=== PATIENT | male | born 1965 | race Caucasian/White ===

== ENCOUNTER → 2016-11-18 | Outpatient (CLI) | payer OTHER ==
[2016-11-18 13:45] LABS: ALANINE AMINOTRANSFERASE 29 U/L (0-55); ALBUMIN 4.3 GM/DL (3.2-4.5); ANION GAP 7 MMOL/L (5-14); ASPARTATE AMINO TRANSFERASE 23 U/L (5-34); BILIRUBIN,TOTAL 0.9 MG/DL (0.1-1.0); BLOOD UREA NITROGEN 12 MG/DL (7-18); BUN/CREATININE RATIO 11; CALCIUM 9.1 MG/DL (8.5-10.1); CARBON DIOXIDE 28 MMOL/L (21-32); CHLORIDE 103 MMOL/L (98-107); CHOLESTEROL 166 MG/DL (< 200); CREATININE SERUM 1.08 MG/DL (0.60-1.30); DIRECT LDL 100 MG/DL (1-129); GFR ESTIMATED > 60; GLUCOSE 86 MG/DL (70-105); POTASSIUM 3.6 MMOL/L (3.6-5.0); SODIUM 138 MMOL/L (135-145); TOTAL PROTEIN 7.1 GM/DL (6.4-8.2); TRIGLYCERIDES 135 MG/DL (<150); VLDL CHOLESTEROL 27 MG/DL (5-40)
--- NOTE | 2016-11-18 23:28 | STRESS TEST ---
DATE OF SERVICE: 11/18/2016 EXERCISE STRESS ECHOCARDIOGRAM: REFERRING PHYSICIAN: Dr. Ballard. Baseline heart rate is 82. Baseline blood pressure 110/60, baseline EKG is sinus rhythm with no ischemic changes. In summary, the patient started exercising with the baseline heart rate, blood pressure and EKG mentioned above. He was able to exercise for a total of 10 minutes 40 seconds on standard Joaquim protocol, achieving maximum heart rate of 146 which is 85% of maximum expected heart rate. With peak exercise level, EKG was showing minimal undiagnostic changes. Blood pressure was 152/89. During recovery, heart rate and blood pressure returned to baseline. EKG returned to baseline. Echocardiographic images were acquired and reviewed in the parasternal long axis, parasternal short axis, apical four chamber and apical two chamber views. Optison injection was used for better enhancement of the left ventricle. Left ventricular contractility appeared to be in the low normal limit at rest, improved with peak stress level with no ischemic changes. CONCLUSION: 1. Excellent exercise tolerance, a total of 10 minutes and 40 seconds on standard Joaquim protocol, total of 12.1 METS, achieving 85% of maximum expected heart rate. 2. Appropriate heart rate and blood pressure response to exercise returned to baseline during recovery. 3. Minimal nondiagnostic EKG changes with exercise returned to baseline during recovery. 4. Normal echocardiographic images at rest and with peak stress level with normal contractility with no ischemic changes. Job ID: [id number] DocumentID: [id number] Dictated Date: 11/18/2016 15:22:22 Specifications Writer Date: 11/18/2016 23:27:32 Dictated By: CESIA GOULD MD
== END ==
LOC: CARD 12:58
PROVIDERS: ATTEND Internal Medicine Cardiovascular Disease
DX: R06.02 Shortness of breath; E78.5 Hyperlipidemia, unspecified; R60.0 Localized edema; I10 Essential (primary) hypertension; R55 Syncope and collapse
CPT/HCPCS: 36415; 80053; 80061; 93306

== ENCOUNTER 2016-11-23 21:00 | Outpatient (CLI) | payer OTHER | END 2016-11-24 05:43 | disposition home or self-care (01) | LOC: SLEEP 21:00 | PROVIDERS: ATTEND Internal Medicine Cardiovascular Disease | DX: G47.33 Obstructive sleep apnea (adult) (pediatric) (principal) | CPT/HCPCS: 95811 ==

== ENCOUNTER 2017-06-14 07:55 | Day surgery (SDC) | payer BC, OTHER ==
[~2017-06-14] VITALS: Ht 185.4 cm; Wt 106.6 kg
[~2017-06-14 07:55] MED LIST: ALLO300T2 PO; LOSA25TA21 PO; PRAV20TA3 PO
[2017-06-14] MEDS ORDERED: NS IV 500 ML 500 ML IV PRN (08:05)
[2017-06-14 08:10] VITALS: BP 122/90
[2017-06-14] MEDS ORDERED: NS IV 500 ML 500 ML ONE (08:16)
[2017-06-14] MEDS ORDERED: MIDAZOLAM 2 MG/2 ML (VERSED) VIAL ONE ×3 (08:40)
[2017-06-14] MEDS ORDERED: fentaNYL INJECTION 100 MCG/2 ML AMP ONE ×2 (08:41→08:57)
[2017-06-14] MEDS: fentaNYL INJECTION 100 MCG/2 ML AMP IVP PRN ×2 (08:53→09:07)
[2017-06-14] MEDS: MIDAZOLAM 2 MG/2 ML (VERSED) VIAL IVP PRN ×3 (08:55→09:05)
--- NOTE | 2017-06-14 09:25 | Conscious Sedation/ASA ---
Conscious Sedation Pre-Proced Time Reviewed: 08:54 ASA Class: 2 Airway Mallampati Classification: ([place] appropriate class) I. II. III, IV Lungs Heart ASA score ASA 1: a normal healthy patient ASA 2: a patient with a mild systemic disease (mid diabetes, controlled hypertension, obesity ASA 3: a patient with a severe systemic disease that limits activity (angina , COPD, prior Myocardial infarction) ASA 4: a patient with an incapacitating disease that is a constant threat to life (CHF, renal failure) ASA 5: a moribund patient not expected to survive 24 hrs. (ruptured aneurysm) ASA 6: a declared brain patient whose organs are being harvested. For emergent operations, add the letter E after the classification Grade 1 Sedation Plan: Discussed options with patient/fam Note The patient is an appropriate candidate to undergo the planned procedure, sedation, and anesthesia. The patient immediately re-assessed prior to indication. LYDIA JAVIER MD Jun 14, 2017 9:25 am
--- NOTE | 2017-06-14 09:25 | History & Physicial ---
History of Present Illness History of Present Illness Reason for visit/HPI to undergo screening colonoscopy. Denies any relevant family history Date of Admission 06/14/17 Date Seen by Provider: Jun 14, 2017 Time Seen by Provider: 08:45 I consulted on this patient on 06/14/17 09:21 Attending Physician Lydia Javier MD Admitting Physician Randall Valero MD Consult Allergies and Home Medications Allergies Coded Allergies: No Known Drug Allergies (Unverified , 06/07/17) Home Medications Allopurinol 300 Mg Tablet, 300 MG PO DAILY, (Reported) Losartan Potassium 25 Mg Tablet, 25 MG PO DAILY, (Reported) Pravastatin Sodium 20 Mg Tablet, 20 MG PO DAILY, (Reported) Patient Home Medication List Home Medication List Reviewed: Yes Past Itkuqva-Cyfppw-Amjwka Hx Patient Social History Marrital Status: single Employed/Student: employed, retired Alcohol Use: Occasionally Uses Recreational Drug Use: No Smoking Status: Never a Smoker Recent Foreign Travel: No Contact w/other who traveled: No Recent Hopitalizations: No Recent Infectious Disease Expo: No Seasonal Allergies Seasonal Allergies: No Surgeries Vasectomy Respiratory Currently Using CPAP: No Cardiovascular Yes High Cholesterol, Hypertension, Syncope Reproductive System Hx Reproductive Disorders: No Sexually Transmitted Disease: No HIV/AIDS: No HEENT Loss of Vision: Bilateral Hearing Impairment: Denies Blood Transfusions Adverse Reaction to a Blood Tr: No (N/A) Constitutional: no symptoms reported EENTM: no symptoms reported Respiratory: no symptoms reported Cardiovascular: no symptoms reported Gastrointestinal: no symptoms reported, see HPI Genitourinary: no symptoms reported Musculoskeletal: no symptoms reported Skin: no symptoms reported Psychiatric/Neurological: No Symptoms Reported Physical Exam Vital Signs Vital Signs - First Documented 06/14/17 08:10 Temp 97.3 Pulse 75 Resp 20 B/P (MAP) 122/90 (101) Pulse Ox 96 O2 Delivery Room Air Capillary Refill : General Appearance: No Apparent Distress Neck: Normal Inspection Respiratory: Lungs Clear Cardiovascular: Regular Rate, Rhythm Gastrointestinal: Non Tender, Soft Rectal: Deferred Back: Normal Inspection Extremity: Normal Inspection Neurologic/Psychiatric: Alert, Oriented x3 Skin: Warm/Dry Assessment/Plan Assessment and Plan gentleman here to undergo screening colonoscopy. Details of the procedure, iatrogenic perforation, post polypectomy bleeding etc. discussed thoroughly. Willing to proceed Admission Diagnosis Admission Status: Other (Outpt Proc) LYDIA JAVIER MD Jun 14, 2017 9:25 am
--- NOTE | 2017-06-14 09:28 | Endo Procedure Record ---
Endo Procedure Report Date of Procedure Last Colonoscopy: No Jun 14, 2017 Surgeon (s) LYDIA JAVIER MD Post Procedure/Op Diagnosis 2 mm polyp at the distal sigmoid colon Sigmoid diverticulosis Procedure Performed Colonoscopy to cecum Hot biopsy polypectomy 1 Description of Procedure Anesthesia Type: Conscious Sedation Specimen(s) collected/removed sigmoid polyp Description of the Procedure indication for the procedure: This gentleman came in for screening colonoscopy. He denied any relevant family history. Informed consent was obtained after reviewing the details and procedure and iatrogenic complications of perforation, post-polypectomy bleeding etc. Description of the procedure: He was placed in left lateral decubitus position and his vital signs were monitored. Conscious sedation was achieved using Versed and fentanyl. Digital rectal examination was unremarkable. The colonoscope was then introduced in the rectum and advanced all the way up to the cecum. Quality of bowel preparation was reasonable. The scope was then withdrawn slowly and the mucosa examined in a systematic fashion. Findings: 1. 2 mm polyp at the distal sigmoid colon, that was excised with hot biopsy forceps 2. Sigmoid diverticulosis without any inflammation He tolerated the procedure well and was taken back to the nursing area in a stable condition. Impression: Screening colonoscopy. Small polyp excised from the sigmoid colon, possibly a hyperplastic type. Recommend repeating exam in 5 years. Copies To: EMANUEL SEBASTIAN MD, XAVIER M MD Jun 14, 2017 9:28 am
--- NOTE | 2017-06-14 09:29 | Discharge Inst-Simple/Standard ---
Discharge Inst-Standard Discharge Medications New, Converted or Re-Newed RX: Other Patient Instructions/Follow Up Plan of Care/Instructions/FU: Repeat colonoscopy in 5 years Activity as Tolerated: Yes Discharge Diet: No Restrictions LYDIA JAVIER MD Jun 14, 2017 9:29 am
[2017-06-14 09:35] VITALS: BP 120/78
[2017-06-14 10:00] VITALS: BP 127/74
[2017-06-14 10:05] VITALS: BP 127/74
== END 2017-06-14 10:05 | disposition home or self-care (01) ==
LOC: ENDO 07:55
PROVIDERS: ATTEND Surgery
DX: Z12.11 Encounter for screening for malignant neoplasm of colon (principal); D12.5 Benign neoplasm of sigmoid colon; K57.30 Diverticulosis of large intestine without perforation or abscess without bleeding; E78.00 Pure hypercholesterolemia, unspecified; I10 Essential (primary) hypertension; Z79.899 Other long term (current) drug therapy
CPT/HCPCS: 88305

== ENCOUNTER 2020-03-11 18:53 | Emergency (ER) | payer BC ==
[~2020-03-11 18:53] MED LIST changes: -LOSA25TA21 PO; +LOSA25TA41 PO
[2020-03-11] MEDS ORDERED: PROMETHAZINE/ CODEINE SYRUP 5 ML UDC ONE (19:14)
[2020-03-11] MEDS ORDERED: IBUPROFEN 800 MG (MOTRIN) TAB PO ONE ×2 (19:15→19:30)
--- NOTE | 2020-03-11 19:21 | ED Respiratory ---
General Chief Complaint: Respiratory Problems Stated Complaint: COVID + SOA Source: patient Exam Limitations: no limitations History of Present Illness Date Seen by Provider: Mar 11, 2020 Time Seen by Provider: 19:19 Initial Comments To ER with shortness of breath Covid positive. He became symptomatic 7 days ago on Saturday 03/04. He tested positive for Covid Sunday 03/05. He was given a prescription for dexamethasone 6 mg daily plus azithromycin and albuterol. He presented to the clinic tonight for recheck and reported that he was feeling worse. His oxygen saturation was 91% on room air. Timing/Duration: constant Associated Symptoms: cough, fever/chills, shortness of breath Allergies and Home Medications Allergies Coded Allergies: No Known Drug Allergies (Unverified , 06/07/17) Home Medications Allopurinol 300 Mg Tablet, 300 MG PO DAILY, (Reported) Losartan Potassium 25 Mg Tablet, 25 MG PO DAILY, (Reported) Pravastatin Sodium 20 Mg Tablet, 20 MG PO DAILY, (Reported) Patient Home Medication List Home Medication List Reviewed: Yes Review of Systems Review of Systems Constitutional: see HPI, chills, fever, malaise EENTM: see HPI Respiratory: see HPI, cough Cardiovascular: no symptoms reported Genitourinary: no symptoms reported Musculoskeletal: no symptoms reported Skin: no symptoms reported Psychiatric/Neurological: No Symptoms Reported Hematologic/Lymphatic: No Symptoms Reported Immunological/Allergic: no symptoms reported Past Cdxnxmz-Rrpzrj-Sbmvns Hx Patient Social History Recent Hopitalizations: No Seasonal Allergies Seasonal Allergies: No Past Medical History Vasectomy Sleep Apnea Currently Using CPAP: No Cardiac: Yes High Cholesterol, Hypertension, Syncope Reproductive Disorders: No Sexually Transmitted Disease: No HIV/AIDS: No Loss of Vision: Bilateral Hearing Impairment: Denies Adverse Reaction/Blood Tranf: No (N/A) Physical Exam Vital Signs - First Documented 03/11/20 19:10 Temp 40.0 Pulse 106 Resp 22 B/P (MAP) 116/82 (93) Pulse Ox 96 O2 Delivery Room Air Capillary Refill : Height: 6'1.00" Weight: 235lbs. 0.0oz. 106.549026ci; 31.0 BMI Method: General Appearance: WD/WN, no apparent distress, other (Persistent cough that interrupts his speech. Heart rate 100. Oxygen 96% on room air after walking to room 10 from the parking lot. Respiratory rate 35. Blood pressure 116/82.) Eyes: Bilateral Eye Normal Inspection, Bilateral Eye PERRL, Bilateral Eye EOMI HEENT: PERRL/EOMI, normal ENT inspection Neck: non-tender, full range of motion Respiratory: no respiratory distress, no accessory muscle use Cardiovascular: regular rate, rhythm, no murmur Gastrointestinal: normal bowel sounds, non tender, soft Neurologic/Psychiatric: alert, normal mood/affect, oriented x 3 Skin: normal color, warm/dry Focused Exam Lactate Level 03/11/20 19:30: Lactic Acid Level 0.95 Lactic Acid Level Laboratory Tests Test 03/11/20 19:30 Lactic Acid Level 0.95 MMOL/L (0.50-2.00) Progress/Results/Core Measures Suspected Sepsis SIRS Temperature: Pulse: Respiratory Rate: Laboratory Tests 03/11/20 19:30: White Blood Count 5.9 Blood Pressure / Mean: 03/11/20 19:30: Lactic Acid Level 0.95 Laboratory Tests 03/11/20 19:30: Creatinine 1.33H, Platelet Count 198, Total Bilirubin 0.4 Results/Orders Lab Results Laboratory Tests Test 03/11/20 19:30 Range/Units White Blood Count 5.9 4.3-11.0 10^3/uL Red Blood Count 4.59 4.30-5.52 10^6/uL Hemoglobin 15.0 13.3-17.7 g/dL Hematocrit 44 40-54 % Mean Corpuscular Volume 97 80-99 fL Mean Corpuscular Hemoglobin 33 25-34 pg Mean Corpuscular Hemoglobin Concent 34 32-36 g/dL Red Cell Distribution Width 12.2 10.0-14.5 % Platelet Count 198 130-400 10^3/uL Mean Platelet Volume 10.2 9.0-12.2 fL Immature Granulocyte % (Auto) 1 % Neutrophils (%) (Auto) 54 42-75 % Lymphocytes (%) (Auto) 37 12-44 % Monocytes (%) (Auto) 7 0-12 % Eosinophils (%) (Auto) 0 0-10 % Basophils (%) (Auto) 0 0-10 % Neutrophils # (Auto) 3.2 1.8-7.8 10^3/uL Lymphocytes # (Auto) 2.2 1.0-4.0 10^3/uL Monocytes # (Auto) 0.4 0.0-1.0 10^3/uL Eosinophils # (Auto) 0.0 0.0-0.3 10^3/uL Basophils # (Auto) 0.0 0.0-0.1 10^3/uL Immature Granulocyte # (Auto) 0.1 0.0-0.1 10^3/uL D-Dimer 0.31 0.00-0.49 UG/ML Sodium Level 141 135-145 MMOL/L Potassium Level 4.2 3.6-5.0 MMOL/L Chloride Level 105 98-107 MMOL/L Carbon Dioxide Level 21 21-32 MMOL/L Anion Gap 15 H 5-14 MMOL/L Blood Urea Nitrogen 20 H 7-18 MG/DL Creatinine 1.33 H 0.60-1.30 MG/DL Estimat Glomerular Filtration Rate 56 BUN/Creatinine Ratio 15 Glucose Level 93 70-105 MG/DL Lactic Acid Level 0.95 0.50-2.00 MMOL/L Calcium Level 8.6 8.5-10.1 MG/DL Corrected Calcium 8.7 8.5-10.1 MG/DL Total Bilirubin 0.4 0.1-1.0 MG/DL Aspartate Amino Transf (AST/SGOT) 40 H 5-34 U/L Alanine Aminotransferase (ALT/SGPT) 36 0-55 U/L Alkaline Phosphatase 69 40-136 U/L C-Reactive Protein High Sensitivity 1.01 H 0.00-0.50 MG/DL B-Type Natriuretic Peptide < 10.0 <100.0 PG/ML Total Protein 7.0 6.4-8.2 GM/DL Albumin 3.9 3.2-4.5 GM/DL My Orders Orders - JOSE BRADFORD APRN Fibrin Degradation Products (03/11/20 19:09) Hs C Reactive Protein (03/11/20 19:09) Procalcitonin (Pct) (03/11/20 19:09) BNP (03/11/20 19:09) Chest 1 View, Ap/Pa Only (03/11/20 19:09) Cbc With Automated Diff (03/11/20 19:09) Comprehensive Metabolic Panel (03/11/20 19:09) Ed Iv/Invasive Line Start (03/11/20 19:09) Lactic Acid Analyzer (03/11/20 19:09) Blood Culture (03/11/20 19:09) Ibuprofen Tablet (Motrin Tablet) (03/11/20 19:30) Promethazine/ Codeine Syrup (Phenergan W (03/11/20 19:30) Promethazine/ Codeine Syrup (Phenergan W (03/11/20 19:14) Ibuprofen Tablet (Motrin Tablet) (03/11/20 19:15) Ns Iv 500 Ml (Sodium Chloride 0.9%) (03/11/20 20:15) Ns Iv 500 Ml (Sodium Chloride 0.9%) (03/11/20 20:10) Medications Given in ED Current Medications Medications Dose Ordered Sig/Carlito Route Start Time Stop Time Status Last Admin Dose Admin Ibuprofen 800 mg ONCE ONCE PO 03/11/20 19:30 03/11/20 19:31 DC 03/11/20 19:20 800 MG Promethazine HCl/ Codeine 7.5 ml ONCE ONCE PO 03/11/20 19:30 03/11/20 19:31 DC 03/11/20 19:21 7.5 ML Vital Signs/I&O 03/11/20 19:10 Temp 40.0 Pulse 106 Resp 22 B/P (MAP) 116/82 (93) Pulse Ox 96 O2 Delivery Room Air Capillary Refill : Departure Impression Primary Impression: COVID-19 Disposition: 01 HOME, SELF-CARE Condition: Stable Departure-Patient Inst. Decision time for Depature: 20:32 Patient Instructions: Coronavirus Disease 2019 (COVID-19) ED Add. Discharge Instructions: Use Tylenol and ibuprofen for fever control. Use the cough medication as directed. Return to ER for any concerns. All discharge instructions reviewed with patient and/or family. Voiced understanding. Scripts Docusate Sodium (Colace) 100 Mg Capsule 100 MG PO BID, #14 CAP Prov: JOSE BRADFORD TAX AGENT 03/11/20 Promethazine HCl/Codeine (Prometh-Codein 6.25-10 mg/5 ml) 5 Ml Syrup 5 ML PO Q4H PRN for COUGH, #60 ML Prov: JOSE BRADFORD TAX AGENT 03/11/20 JOSE BRADFORD TAX AGENT Mar 11, 2020 19:21
[2020-03-11] MEDS ORDERED: PROMETHAZINE/ CODEINE SYRUP 5 ML UDC PO ONE (19:30)
[2020-03-11 19:46] LABS: BASOPHILS % (AUTO) 0 % (0-10); EOSINOPHILS % (AUTO) 0 % (0-10); HEMATOCRIT 44 % (40-54); LYMPHOCYTES # (AUTO) 2.2 10^3/uL (1.0-4.0); LYMPHOCYTES % (AUTO) 37 % (12-44); MEAN CORPUSCULAR HEMOGLOBIN 33 pg (25-34); MEAN CORPUSCULAR HGB CONC 34 g/dL (32-36); MEAN CORPUSCULAR VOLUME 97 fL (80-99); MEAN PLATELET VOLUME 10.2 fL (9.0-12.2); MONOCYTES # (AUTO) 0.4 10^3/uL (0.0-1.0); MONOCYTES % (AUTO) 7 % (0-12); NEUTROPHILS # (AUTO) 3.2 10^3/uL (1.8-7.8); NEUTROPHILS % (AUTO) 54 % (42-75); PLATELET COUNT 198 10^3/uL (130-400); WHITE BLOOD COUNT 5.9 10^3/uL (4.3-11.0)
[2020-03-11 20:09] LABS: ALBUMIN 3.9 GM/DL (3.2-4.5); BILIRUBIN,TOTAL 0.4 MG/DL (0.1-1.0); CALCIUM 8.6 MG/DL (8.5-10.1); CREATININE SERUM 1.33 MG/DL (0.60-1.30); POTASSIUM 4.2 MMOL/L (3.6-5.0)
[2020-03-11] MEDS ORDERED: NS IV 500 ML 500 ML ONE (20:10)
[2020-03-11] MEDS ORDERED: NS IV 500 ML 500 ML IV SCH (20:15)
--- NOTE | 2020-03-11 20:22 | Diagnostic Imaging Report ---
INDICATION: Covid infection and dyspnea. AP view of the chest is obtained. There is suboptimal inspiration. Heart size and pulmonary vascularity are at the upper limits of normal with mild blunting of the left costophrenic sulcus. Mild patchy densities are seen in the periphery of both lungs most pronounced in the right upper lobe region. There is no evidence of pneumothorax. IMPRESSION: 1. Patchy peripheral densities likely related to edema or viral pneumonitis. There may be a small amount of left pleural fluid or thickening. Dictated by: Dictated on workstation # [id number]
[2020-03-11] MEDS ORDERED: DOCU-143 PO (20:35)
[2020-03-11] MEDS ORDERED: PROM5SYR PO (20:35)
[2020-03-11] MEDS ORDERED: RX-ACETAMINOPHEN/CODEINE TAB PPK #4 PO SCH (20:45)
[2020-03-11 20:58] VITALS: BP 116/66
== END 2020-03-11 20:58 | disposition home or self-care (01) ==
LOC: EDUNIT# 18:53 → ER 18:55
DX: U07.1 COVID-19 (principal); I10 Essential (primary) hypertension; E78.00 Pure hypercholesterolemia, unspecified
CPT/HCPCS: 36415; 71045; 80053; 83605; 83880; 84145; 85025; 85379; 86141; 87040

== ENCOUNTER 2020-03-13 16:40 | Inpatient (IN) | payer BC ==
[~2020-03-13] VITALS: Ht 185 cm; Wt 105.0 kg
[~2020-03-13 16:40] MED LIST changes: +DOCU-143 PO; +PROM5SYR PO
[2020-03-13] MEDS ORDERED: NS IV 1000 ML 1,000 ML IV SCH (17:00)
[2020-03-13 17:04] LABS: ABG BASE EXCESS -2.1 MMOL/L (-2.5-2.5); ABG OXYGEN SATURATION 94 % (94-100); ABG PCO2 33 MMHG (35-45); ABG PH 7.43 (7.37-7.43); ABG PO2 81 MMHG (79-93); ABG TCO2 22.1 MMOL/L (21.0-31.0)
[2020-03-13 17:07] LABS: ALLENS TEST POS; INSPIRED O2 ROOM AIR; PATIENT TEMP 101.8; VENTILATOR NO
[2020-03-13] MEDS ORDERED: ACETAMINOPHEN 500 MG TAB (TYLENOL) ONE (17:16)
--- NOTE | 2020-03-13 17:40 | Diagnostic Imaging Report ---
CLINICAL INDICATION: Patient with low oxygenation and shortness of breath, fever and cough. Patient Covid positive. Exam: Portable chest x-ray upright view. Comparisons: Chest x-ray dated 03/11/2020. Findings: There is interval decreased aeration of both lungs (right side more than the left). There is slight increased patchy airspace opacities in the periphery of the right midlung field region. Groundglass opacification in the periphery of both lungs are again noted which is also noted on prior study. There is no definite pleural effusion or pneumothorax. Cardiomegaly is seen. There is no significant pulmonary vascular congestion. IMPRESSION: 1: There is interval decreased aeration of both lungs (right side more than the left) with slight increased patchy airspace opacity or infiltrate involving the right upper lobe region. Atelectasis may also be considered. 2: The remainder of this exam shows no significant interval change compared to the prior study of comparison. Dictated by: Dictated on workstation # [id number]
--- NOTE | 2020-03-13 17:47 | ED Respiratory ---
General Chief Complaint: Cough/Cold/Flu Symptoms Stated Complaint: LOW O2,SOB, FEVER, COUGH, COVID + Source: patient Exam Limitations: no limitations History of Present Illness Date Seen by Provider: Mar 13, 2020 Time Seen by Provider: 16:50 Initial Comments 55-year-old male who presents to the emergency room with complaints of shortness of breath. He is Covid positive. He became symptomatic on 03/04/2020. He has been seen at [facility] in the emergency room for evaluation. He reports that his cough is getting worse, he is continuing to run fevers, he is 90% on room air today. He reports that he has been on promethazine with codeine cough syrup, has had dexamethasone 6 mg daily and has had a round of azithromycin. He is febrile on arrival today. Timing/Duration: getting worse Associated Symptoms: cough, shortness of breath Allergies and Home Medications Allergies Coded Allergies: No Known Drug Allergies (Unverified , 06/07/17) Home Medications Allopurinol 300 Mg Tablet, 300 MG PO DAILY, (Reported) Docusate Sodium 100 Mg Capsule, 100 MG PO BID Prescribed by: JOSE BRADFORD on 03/11/202034 Losartan Potassium 25 Mg Tablet, 25 MG PO DAILY, (Reported) Pravastatin Sodium 20 Mg Tablet, 20 MG PO DAILY, (Reported) Promethazine HCl/Codeine 5 Ml Syrup, 5 ML PO Q4H PRN for COUGH Prescribed by: JOSE BRADFORD on 03/11/202035 Patient Home Medication List Home Medication List Reviewed: Yes Review of Systems Review of Systems Constitutional: see HPI, chills, fever Respiratory: see HPI, cough, short of breath All Other Systems Reviewed Negative Unless Noted: Yes Past Cebugvj-Ebqfog-Atohzg Hx Past Med/Social Hx: Reviewed Nursing Past Med/Soc Hx Patient Social History 2nd Hand Smoke Exposure: No Recent Hopitalizations: No Seasonal Allergies Seasonal Allergies: No Past Medical History Surgeries: Yes (HIP RELACEMENT, UMBILICAL HERNIA) Vasectomy Respiratory: Yes (COVID-19+) Sleep Apnea Currently Using CPAP: No Cardiac: Yes High Cholesterol, Hypertension, Syncope Neurological: No Reproductive Disorders: No Sexually Transmitted Disease: No HIV/AIDS: No Gastrointestinal: No Musculoskeletal: No Endocrine: No Loss of Vision: Bilateral Hearing Impairment: Denies Cancer: No Psychosocial: No Integumentary: No Blood Disorders: No Adverse Reaction/Blood Tranf: No (N/A) Family Medical History Reviewed Nursing Family Hx Physical Exam Vital Signs - First Documented Capillary Refill : Height: 6'1.00" Weight: 235lbs. 0.0oz. 106.393561wg; 31.0 BMI Method: General Appearance: WD/WN, no apparent distress Respiratory: chest non-tender, lungs clear, normal breath sounds, no resp iratory distress, no accessory muscle use, respiratory distress Cardiovascular: normal peripheral pulses, regular rate, rhythm, no edema, no gallop, no JVD, no murmur Extremities: normal capillary refill Neurologic/Psychiatric: alert, normal mood/affect, oriented x 3 Skin: normal color, warm/dry Focused Exam Lactate Level 03/13/20 17:45: Lactic Acid Level 0.99 Lactic Acid Level Laboratory Tests Test 03/13/20 17:45 Lactic Acid Level 0.99 MMOL/L (0.50-2.00) Progress/Results/Core Measures Suspected Sepsis SIRS Temperature: Pulse: Respiratory Rate: Laboratory Tests 03/13/20 17:45: White Blood Count 4.6 Blood Pressure / Mean: 03/13/20 17:45: Lactic Acid Level 0.99 Laboratory Tests 03/13/20 17:45: Creatinine 0.94, INR Comment 0.9, Platelet Count 166, Total Bilirubin 0.5 Results/Orders Lab Results Laboratory Tests Test 03/13/20 16:58 03/13/20 17:45 Range/Units Blood Gas Puncture Site LFT WRIST Blood Gas Patient Temperature 101.8 Arterial Blood pH 7.43 7.37-7.43 Arterial Blood Partial Pressure CO2 33 L 35-45 MMHG Arterial Blood Partial Pressure O2 81 79-93 MMHG Arterial Blood HCO3 21 L 23-27 MMOL/L Arterial Blood Total CO2 22.1 21.0-31.0 MMOL/L Arterial Blood Oxygen Saturation 94 94-100 % Arterial Blood Base Excess -2.1 -2.5-2.5 MMOL/L Ezequiel Test POS Blood Gas Ventilator Setting NO Blood Gas Inspired Oxygen ROOM AIR White Blood Count 4.6 4.3-11.0 10^3/uL Red Blood Count 4.48 4.30-5.52 10^6/uL Hemoglobin 14.7 13.3-17.7 g/dL Hematocrit 43 40-54 % Mean Corpuscular Volume 96 80-99 fL Mean Corpuscular Hemoglobin 33 25-34 pg Mean Corpuscular Hemoglobin Concent 34 32-36 g/dL Red Cell Distribution Width 12.0 10.0-14.5 % Platelet Count 166 130-400 10^3/uL Mean Platelet Volume 10.0 9.0-12.2 fL Immature Granulocyte % (Auto) 1 % Neutrophils (%) (Auto) 58 42-75 % Lymphocytes (%) (Auto) 33 12-44 % Monocytes (%) (Auto) 7 0-12 % Eosinophils (%) (Auto) 1 0-10 % Basophils (%) (Auto) 0 0-10 % Neutrophils # (Auto) 2.7 1.8-7.8 10^3/uL Lymphocytes # (Auto) 1.5 1.0-4.0 10^3/uL Monocytes # (Auto) 0.3 0.0-1.0 10^3/uL Eosinophils # (Auto) 0.0 0.0-0.3 10^3/uL Basophils # (Auto) 0.0 0.0-0.1 10^3/uL Immature Granulocyte # (Auto) 0.0 0.0-0.1 10^3/uL Prothrombin Time 12.5 12.2-14.7 SEC INR Comment 0.9 0.8-1.4 Activated Partial Thromboplast Time 30 24-35 SEC D-Dimer 0.73 H 0.00-0.49 UG/ML Sodium Level 134 L 135-145 MMOL/L Potassium Level 3.9 3.6-5.0 MMOL/L Chloride Level 104 98-107 MMOL/L Carbon Dioxide Level 20 L 21-32 MMOL/L Anion Gap 10 5-14 MMOL/L Blood Urea Nitrogen 15 7-18 MG/DL Creatinine 0.94 0.60-1.30 MG/DL Estimat Glomerular Filtration Rate > 60 BUN/Creatinine Ratio 16 Glucose Level 97 70-105 MG/DL Lactic Acid Level 0.99 0.50-2.00 MMOL/L Calcium Level 8.0 L 8.5-10.1 MG/DL Corrected Calcium 8.3 L 8.5-10.1 MG/DL Total Bilirubin 0.5 0.1-1.0 MG/DL Aspartate Amino Transf (AST/SGOT) 31 5-34 U/L Alanine Aminotransferase (ALT/SGPT) 25 0-55 U/L Alkaline Phosphatase 64 40-136 U/L Troponin I < 0.028 <0.028 NG/ML C-Reactive Protein High Sensitivity 1.73 H 0.00-0.50 MG/DL Total Protein 6.5 6.4-8.2 GM/DL Albumin 3.6 3.2-4.5 GM/DL Procalcitonin 0.04 <0.10 NG/ML My Orders Orders - TAQUERIA DE LA CRUZ Vital Signs: Every 4 Hours (Or (03/13/20 16:46) Monitor-Rhythm Ecg Trace Only (03/13/20 16:46) Ed Iv/Invasive Line Start (03/13/20 16:46) Cbc With Automated Diff (03/13/20 16:46) Comprehensive Metabolic Panel (03/13/20 16:46) Ferritin (03/13/20 16:46) Hs C Reactive Protein (03/13/20 16:46) Troponin I (03/13/20 16:46) Lactic Acid Analyzer (03/13/20 16:46) Protime With Inr (03/13/20 16:46) Partial Thromboplastin Time (03/13/20 16:46) Fibrin Degradation Products (03/13/20 16:46) Chest 1 View, Ap/Pa Only (03/13/20 16:46) Procalcitonin (Pct) (03/13/20 16:46) Ns Iv 1000 Ml (Sodium Chloride 0.9%) (03/13/20 17:00) Blood Culture (03/13/20 16:57) Arterial Blood Gas (03/13/20 16:57) Acetaminophen Tablet (Tylenol Tablet) (03/13/20 17:16) Ct Angio Chest W (03/13/20 19:02) Iohexol Injection (Omnipaque 350 Mg/Ml 1 (03/13/20 19:15) Received Contrast (Hold Metformin- Contr (03/13/20 19:15) Ns (Ivpb) (Sodium Chloride 0.9% Ivpb Bag (03/13/20 19:15) Medications Given in ED Current Medications Medications Dose Ordered Sig/Carlito Route Start Time Stop Time Status Last Admin Dose Admin Acetaminophen 500 mg STK-MED ONCE .ROUTE 03/13/20 17:16 03/13/20 17:21 DC 03/13/20 17:22 500 MG Iohexol 100 ml ONCE ONCE IV 03/13/20 19:15 03/13/20 19:16 DC 03/13/20 19:55 85 ML Sodium Chloride 100 ml ONCE ONCE IV 03/13/20 19:15 03/13/20 19:16 DC 03/13/20 19:55 95 ML Vital Signs/I&O 03/13/20 03/13/20 16:45 16:45 Temp 38.7 Pulse 99 Resp 36 B/P (MAP) 135/99 (111) Pulse Ox 93 O2 Delivery Room Air Room Air Capillary Refill : Progress Note : Time: 20:00 Progress Note I have seen and evaluated the patient. I have informed him of his laboratory and imaging studies. I did discuss the case with Dr. Armendariz at this time and he wishes to wait for antibiotics given normal procalcitonin. The patient is maintaining on 2 L of oxygen via nasal cannula. Departure Communication (Admissions) Time/Spoke to Admitting Phy: 20:00 Dr. Armendariz Impression Primary Impression: COVID-19 Additional Impression: Hypoxia Disposition: 01 HOME, SELF-CARE Condition: Stable Admissions Decision to Admit Reason: Admit from ER (General) Decision to Admit/Date: Mar 13, 2020 Time/Decision to Admit Time: 20:00 Departure-Patient Inst. Referrals: IMANI SILVA MD (PCP) Primary Care Physician TAQUERIA DE LA CRUZ Mar 13, 2020 17:47
[2020-03-13 17:55] LABS: BASOPHILS % (AUTO) 0 % (0-10); EOSINOPHILS % (AUTO) 1 % (0-10); HEMATOCRIT 43 % (40-54); HEMOGLOBIN 14.7 g/dL (13.3-17.7); LYMPHOCYTES # (AUTO) 1.5 10^3/uL (1.0-4.0); LYMPHOCYTES % (AUTO) 33 % (12-44); MEAN CORPUSCULAR HEMOGLOBIN 33 pg (25-34); MEAN CORPUSCULAR HGB CONC 34 g/dL (32-36); MEAN CORPUSCULAR VOLUME 96 fL (80-99); MONOCYTES # (AUTO) 0.3 10^3/uL (0.0-1.0); MONOCYTES % (AUTO) 7 % (0-12); NEUTROPHILS # (AUTO) 2.7 10^3/uL (1.8-7.8); NEUTROPHILS % (AUTO) 58 % (42-75); PLATELET COUNT 166 10^3/uL (130-400); WHITE BLOOD COUNT 4.6 10^3/uL (4.3-11.0)
[2020-03-13 18:03] LABS: ALBUMIN 3.6 GM/DL (3.2-4.5); CHLORIDE 104 MMOL/L (98-107); POTASSIUM 3.9 MMOL/L (3.6-5.0); SODIUM 134 MMOL/L (135-145)
[2020-03-13 18:06] LABS: GLUCOSE 97 MG/DL (70-105); TOTAL PROTEIN 6.5 GM/DL (6.4-8.2)
[2020-03-13 18:07] LABS: BILIRUBIN,TOTAL 0.5 MG/DL (0.1-1.0); CARBON DIOXIDE 20 MMOL/L (21-32)
[2020-03-13 18:09] LABS: ALKALINE PHOSPHATASE 64 U/L (40-136); CREATININE SERUM 0.94 MG/DL (0.60-1.30); GFR ESTIMATED > 60
[2020-03-13 18:10] LABS: BUN/CREATININE RATIO 16
[2020-03-13 18:12] LABS: ALANINE AMINOTRANSFERASE 25 U/L (0-55)
[2020-03-13 18:17] LABS: FIBRIN DEGRADATION PRODUCTS 0.73 UG/ML (0.00-0.49); INR 0.9 (0.8-1.4); PROTHROMBIN TIME PATIENT 12.5 SEC (12.2-14.7)
--- NOTE | 2020-03-13 19:00 | NUR ---
RECIEVED REPORT FROM OLIVER PELAEZ TO ASSUME CARE OF PT AT THIS TIME.
[2020-03-13] MEDS ORDERED: NS 100 ML (IVPB) BAG IV ONE (19:15)
[2020-03-13] MEDS ORDERED: HOLD METFORMIN - RECEIVED CONTRAST 20 ML VIAL IV SCH (19:15)
[2020-03-13] MEDS ORDERED: IOHEXOL 350 MG/ML 100 ML (OMNIPAQUE 350) VIAL IV ONE (19:15)
--- NOTE | 2020-03-13 20:03 | Diagnostic Imaging Report ---
PROCEDURE: CT angiography of the chest with contrast. TECHNIQUE: Multiple contiguous axial images were obtained through the chest after uneventful bolus administration of intravenous contrast. 3D reconstructed CTA MIP acquisitions were also performed. Auto Exposure Controls were utilized during the CT exam to meet ALARA standards for radiation dose reduction. INDICATION: Covid positive with fever and cough. FINDINGS: There is good opacification of pulmonary arteries without intraluminal filling defect identified. Thoracic aorta is of normal caliber without evidence of dissection or aneurysm. Atherosclerotic calcification is seen within coronary arteries. There is no significant pleural or pericardial fluid. Patchy interstitial and groundglass densities are seen throughout the periphery of the lungs. No lobar consolidation is identified. IMPRESSION: Patchy peripheral densities are likely due to ongoing viral infection. There are coronary artery calcifications without CTA evidence of pulmonary embolism. Dictated by: Dictated on workstation # [id number]
--- NOTE | 2020-03-13 20:30 | NUR ---
CONTACTED [facility] PROGRAMMER NUMERICAL CONTROLSONI SMITH, REQUESTING PT TRANSFER TO [facility]. SONI REPORTS NO TRUCK AVAILABILITY UNTIL TOMORROW MORNING AFTER SHIFT CHANGE. PROVIDER NOTIFIED.
--- NOTE | 2020-03-13 20:40 | NUR ---
CONTACTED [facility] AND SPOKE SONI BURDEN REQUESTING PT TRANSFER TO [facility]. WILL REPORTS AVAILABILITY AT SHIFT CHANGE AT 0700. TRANSFER CREW ACCEPTED.
--- NOTE | 2020-03-13 20:45 | NUR ---
CONTACTED [facility] MOLD WASHERSONI SMITH, REPORTING NO LONGER NEEDING [facility] TRANSPORT.
--- NOTE | 2020-03-13 21:16 | NUR ---
REPORT GIVEN TO YAMILET BOYD FOR ROOM 433.
[2020-03-13] MEDS ORDERED: ACETAMINOPHEN 500 MG TAB (TYLENOL) PO PRN (21:45)
[2020-03-13 22:06] VITALS: BP 117/76
[2020-03-13] MEDS: NS IV 1000 ML 1,000 ML IV SCH (22:30)
[2020-03-13] MEDS: ENOXAPARIN 40 MG/0.4 ML (LOVENOX) SYR SC SCH (22:32)
[2020-03-14] VITALS (8 sets, daily range): BP systolic 107–138; BP diastolic 70–92
[2020-03-14 05:52] LABS: BASOPHILS % (AUTO) 0 % (0-10); EOSINOPHILS % (AUTO) 0 % (0-10); HEMATOCRIT 42 % (40-54); HEMOGLOBIN 14.6 g/dL (13.3-17.7); LYMPHOCYTES # (AUTO) 0.8 10^3/uL (1.0-4.0); LYMPHOCYTES % (AUTO) 35 % (12-44); MEAN CORPUSCULAR HEMOGLOBIN 33 pg (25-34); MEAN CORPUSCULAR HGB CONC 34 g/dL (32-36); MEAN CORPUSCULAR VOLUME 96 fL (80-99); MEAN PLATELET VOLUME 10.1 fL (9.0-12.2); MONOCYTES # (AUTO) 0.2 10^3/uL (0.0-1.0); MONOCYTES % (AUTO) 7 % (0-12); NEUTROPHILS # (AUTO) 1.3 10^3/uL (1.8-7.8); NEUTROPHILS % (AUTO) 57 % (42-75); PLATELET COUNT 171 10^3/uL (130-400); WHITE BLOOD COUNT 2.3 10^3/uL (4.3-11.0)
[2020-03-14 06:04] LABS: ALANINE AMINOTRANSFERASE 20 U/L (0-55); ALBUMIN 3.5 GM/DL (3.2-4.5); ALKALINE PHOSPHATASE 64 U/L (40-136); BILIRUBIN,TOTAL 0.3 MG/DL (0.1-1.0); BUN/CREATININE RATIO 16; CALCIUM 8.2 MG/DL (8.5-10.1); CARBON DIOXIDE 18 MMOL/L (21-32); CHLORIDE 106 MMOL/L (98-107); CREATININE SERUM 0.91 MG/DL (0.60-1.30); GFR ESTIMATED > 60; GLUCOSE 132 MG/DL (70-105); POTASSIUM 4.5 MMOL/L (3.6-5.0); SODIUM 135 MMOL/L (135-145); TOTAL PROTEIN 6.4 GM/DL (6.4-8.2)
[2020-03-14] MEDS ORDERED: ANTACID SUSP 30 ML UDC (MYLANTA) PO PRN (08:45)
[2020-03-14] MEDS ORDERED: REMDESIVIR INJ 200 MG in NS (IVPB) 210 ML IV NR (08:45)
[2020-03-14] MEDS ORDERED: MILK OF MAGNESIA 400 MG/5 ML 30 ML UDC PO PRN (08:45)
[2020-03-14] MEDS ORDERED: NS IV 500 ML 500 ML IV SCH (08:45)
[2020-03-14] MEDS ORDERED: ONDANSETRON 4 MG/2 ML (SDV) Z0FRAN IV PRN (08:45)
[2020-03-14] MEDS ORDERED: MELATONIN 3 MG TABLET PO PRN (08:45)
[2020-03-14] MEDS ORDERED: ACETAMINOPHEN 325 MG TABLET PO PRN (08:45)
[2020-03-14] MEDS ORDERED: BENZONATATE 100 MG (TESSALON) CAPSULE PO PRN (08:45)
--- NOTE | 2020-03-14 09:16 | History & Physical-Hospitalist ---
History of Present Illness HPI/Chief Complaint Pt is a 55yoCM who presented to the ER due to shortness of breath. He states he developed cough and shortness of breath on 03/04 and tested positive for COVID on 03/05. He was doing well and went out riding over the weekend and was out in the rain and then got worse. He denies any myalgias, fevers, loss of taste or smell, nausea, vomiting, or diarrhea. He mostly just has dyspnea on exertion and cough. He was seen in the ER a couple of days ago and prescribed promethazine with codeine for symptomatic management but otherwise was not hypoxic so was able to go home. He continued to worsen and presented to the ER last night with sats in the 80s. He reports feeling better today but still gets winded with exertion. Source: patient Date Seen 03/14/20 Time Seen by a Provider: 09:15 Attending Physician Livan Armendariz MD PCP Antony Ballard MD Referring Physician Date of Admission Mar 13, 2020 at 20:00 Home Medications & Allergies Home Medications Reviewed patient Home Medication Reconciliation performed by pharmacy medication reconciliations telecommunications technician and/or nursing. Patients Allergies have been reviewed. Allergies Allergies Coded Allergies No Known Drug Allergies (Unverified06/07/17) Past Piitwgx-Ktyjld-Eeiqvz Hx Past Med/Social Hx: Reviewed Nursing Past Med/Soc Hx Patient Social History Alcohol Use: Denies Use Recreational Drug Use: No Smoking Status: Never a Smoker 2nd Hand Smoke Exposure: No Recent Foreign Travel: No Contact w/other who traveled: No Recent Hopitalizations: No Recent Infectious Disease Expo: No Seasonal Allergies Seasonal Allergies: No Past Medical History Surgeries: Vasectomy Currently Using CPAP: No Cardiac: High Cholesterol, Hypertension, Syncope Reproductive: No Sexually Transmitted Disease: No HIV/AIDS: No Loss of Vision: Bilateral Hearing Impairment: Denies History of Blood Disorders: No Adverse Reaction to Blood Bishop: No (N/A) Family History Reviewed Nursing Family Hx No Pertinent Family Hx Review of Systems Constitutional: No chills, No fever, No malaise, No weakness EENTM: see HPI Respiratory: cough, dyspnea on exertion; No phlegm; short of breath Cardiovascular: No chest pain, No edema, No palpitations Gastrointestinal: No abdominal pain, No constipation, No diarrhea, No loss of appetite, No nausea, No vomiting Genitourinary: No dysuria, No frequency Musculoskeletal: no symptoms reported Skin: no symptoms reported Psychiatric/Neurological: No Symptoms Reported Physical Exam Physical Exam Vital Signs Vital Signs - First Documented 03/13/20 22:00 O2 Flow Rate 3.00 Capillary Refill : Less Than 3 Seconds Height, Weight, BMI Height: 6'1.00" Weight: 235lbs. 0.0oz. 106.288029pf; 30.67 BMI Method: General Appearance: No Apparent Distress, WD/WN HEENT: PERRL/EOMI, Moist Mucous Membranes Neck: Normal Inspection, Supple Respiratory: Lungs Clear, No Accessory Muscle Use, Other (on NC) Cardiovascular: Regular Rate, Rhythm, No JVD, No Murmur Gastrointestinal: Normal Bowel Sounds, Non Tender, Soft Extremity: No Calf Tenderness, No Pedal Edema Neurologic/Psychiatric: Alert, Oriented x3, Normal Mood/Affect Skin: Normal Color, Warm/Dry Results Results/Procedures Labs Laboratory Tests 03/13/20 17:45 03/14/20 05:34 Patient resulted labs reviewed. Imaging: Reviewed Imaging Report Imaging [facility] [place] NAME: MARTINEZ VARELA [facility] REC#: [id number] PT STATUS: REG ER : 1965 PHYSICIAN: TAQUERIA DE LA CRUZ ADMIT DATE: 03/13/20/ER Signed Date of Exam:03/13/20 CHEST 1 VIEW, AP/PA ONLY CLINICAL INDICATION: Patient with low oxygenation and shortness of breath, fever and cough. Patient Covid positive. Exam: Portable chest x-ray upright view. Comparisons: Chest x-ray dated 03/11/2020. Findings: There is interval decreased aeration of both lungs (right side more than the left). There is slight increased patchy airspace opacities in the periphery of the right midlung field region. Groundglass opacification in the periphery of both lungs are again noted which is also noted on prior study. There is no definite pleural effusion or pneumothorax. Cardiomegaly is seen. There is no significant pulmonary vascular congestion. IMPRESSION: 1: There is interval decreased aeration of both lungs (right side more than the left) with slight increased patchy airspace opacity or infiltrate involving the right upper lobe region. Atelectasis may also be considered. 2: The remainder of this exam shows no significant interval change compared to the prior study of comparison. Dictated by: Dictated on workstation # [id number] Dict: 03/13/201733 Trans: 03/13/201831 ERICA [id number] Interpreted by: RITESH HARRIS MD Electronically signed by: RITESH HARRIS MD 03/13/201831 [facility] [place] NAME: MARTINEZ VARELA [facility] REC#: [id number] PT STATUS: REG ER : 1965 PHYSICIAN: TAQUERIA DE LA CRUZ ADMIT DATE: 03/13/20/ER Signed Date of Exam:03/13/20 CT ANGIO CHEST W PROCEDURE: CT angiography of the chest with contrast. TECHNIQUE: Multiple contiguous axial images were obtained through the chest after uneventful bolus administration of intravenous contrast. 3D reconstructed CTA MIP acquisitions were also performed. Auto Exposure Controls were utilized during the CT exam to meet ALARA standards for radiation dose reduction. INDICATION: Covid positive with fever and cough. FINDINGS: There is good opacification of pulmonary arteries without intraluminal filling defect identified. Thoracic aorta is of normal caliber without evidence of dissection or aneurysm. Atherosclerotic calcification is seen within coronary arteries. There is no significant pleural or pericardial fluid. Patchy interstitial and groundglass densities are seen throughout the periphery of the lungs. No lobar consolidation is identified. IMPRESSION: Patchy peripheral densities are likely due to ongoing viral infection. There are coronary artery calcifications without CTA evidence of pulmonary embolism. Dictated by: Dictated on workstation # [id number] Dict: 03/13/201954 Trans: 03/13/202053 [facility] [id number] Interpreted by: MISAEL TOVAR MD Electronically signed by: MISAEL TOVAR MD 03/13/202053 Assessment/Plan Admission Diagnosis Acute hypoxic respiratory failure due to COVID19 Admission Status: Inpatient Order (span 2 midnights) Reason for Inpatient Admission: see below Assessment and Plan Acute hypoxic respiratory failure due to COVID19 Continue decadron Within 10day window, will start on Remdesivir Convalescent plasma ordered Wean oxygen as able MAT protocol Lovenox HLD Continue statin Obesity BMi 30.7 No acute needs DVT ppx: Lovenox Diagnosis/Problems Diagnosis/Problems (1) Acute respiratory failure (2) HLD (hyperlipidemia) (3) COVID-19 Status: Acute EVA GAN MD Mar 14, 2020 09:16
[2020-03-14] MEDS: NS IV 1000 ML 1,000 ML IV SCH (09:44)
[2020-03-14] MEDS ORDERED: DCS100C PO (13:30)
[2020-03-14] MEDS ORDERED: PROM5SYR PO (13:30)
[2020-03-14] MEDS ORDERED: ATOR40TA70 PO (13:30)
[2020-03-14] MEDS ORDERED: RT-ALBUINH INH (13:30)
[2020-03-14] MEDS ORDERED: ACET-2267 PO (13:30)
[2020-03-14] MEDS ORDERED: ASPI-1238 PO (13:30)
[2020-03-14] MEDS ORDERED: MULT-1136 PO (13:30)
--- NOTE | 2020-03-14 13:33 | NUR ---
SPOKE WITH THE PT AND WENT THRU THE EXT MED HISTORY TO COMPLETE THE MED REC HYDROXYZINE KEVIN 50MG IS ON THE EXT MED HISTORY BUT PT SAYS HE IS NO LONGER TAKING DUE TO HOW IT MADE HIM FEEL OTC MEDS: MTV ASPIRIN 81 TYLENOL
[2020-03-14] MEDS: PROMETHAZINE/ CODEINE SYRUP 5 ML UDC PO PRN ×2 (13:52→20:15)
--- NOTE | 2020-03-14 15:25 | NUR ---
Received dietary consult for MST score. Given current PO intake, pt is not at risk for malnutrition at this time. Tran Bazzi, MS RD LD
[2020-03-14] MEDS: dexAMETHasone 6 MG TAB (DECADRON) PO SCH (18:47)
[2020-03-14] MEDS: ENOXAPARIN 40 MG/0.4 ML (LOVENOX) SYR SC SCH (20:07)
[2020-03-14] MEDS ORDERED: RT-ALBUTEROL INHALER HFA (VENTOLIN HFA) 18 GM IH PRN (22:00)
[2020-03-15] VITALS (8 sets, daily range): BP systolic 110–130; BP diastolic 68–87
[2020-03-15] MEDS: NS IV 1000 ML 1,000 ML IV SCH ×2 (00:25→15:50)
[2020-03-15] MEDS: dexAMETHasone 6 MG TAB (DECADRON) PO SCH (06:08)
[2020-03-15 07:05] LABS: ALBUMIN 3.6 GM/DL (3.2-4.5)
[2020-03-15 07:06] LABS: CHLORIDE 105 MMOL/L (98-107); POTASSIUM 4.4 MMOL/L (3.6-5.0); SODIUM 136 MMOL/L (135-145)
[2020-03-15 07:07] LABS: CALCIUM 8.3 MG/DL (8.5-10.1)
[2020-03-15 07:08] LABS: GLUCOSE 169 MG/DL (70-105); TOTAL PROTEIN 6.5 GM/DL (6.4-8.2)
[2020-03-15 07:09] LABS: CARBON DIOXIDE 21 MMOL/L (21-32)
[2020-03-15 07:10] LABS: BILIRUBIN,TOTAL 0.4 MG/DL (0.1-1.0)
[2020-03-15 07:11] LABS: ALKALINE PHOSPHATASE 67 U/L (40-136)
[2020-03-15 07:12] LABS: CREATININE SERUM 0.95 MG/DL (0.60-1.30); GFR ESTIMATED > 60
[2020-03-15 07:13] LABS: BUN/CREATININE RATIO 16
[2020-03-15 07:15] LABS: ALANINE AMINOTRANSFERASE 24 U/L (0-55)
[2020-03-15] MEDS: PROMETHAZINE/ CODEINE SYRUP 5 ML UDC PO PRN ×2 (07:44→21:18)
[2020-03-15] MEDS: REMDESIVIR INJ 100 MG in NS (IVPB) 230 ML IV SCH (09:21)
[2020-03-15] MEDS: RT-ALBUTEROL INHALER HFA (VENTOLIN HFA) 18 GM IH SCH ×4 (10:48→18:30)
--- NOTE | 2020-03-15 14:44 | Progress Note - Hospitalist ---
Subjective HPI/CC On Admission Date Seen by Provider: Mar 15, 2020 Time Seen by Provider: 14:43 Pt is a 55yoCM who presented to the ER due to shortness of breath. He states he developed cough and shortness of breath on 03/04 and tested positive for COVID on 03/05. He was doing well and went out riding over the weekend and was out in the rain and then got worse. He denies any myalgias, fevers, loss of taste or smell, nausea, vomiting, or diarrhea. He mostly just has dyspnea on exertion and cough. He was seen in the ER a couple of days ago and prescribed promethazine with codeine for symptomatic management but otherwise was not hypoxic so was able to go home. He continued to worsen and presented to the ER last night with sats in the 80s. He reports feeling better today but still gets winded with exertion. Subjective/Events-last exam Pt reports feeling much better today. Was able to come off oxygen this morning. No complaints. Focused Exam Lactate Level 03/13/20 17:45: Lactic Acid Level 0.99 Objective Exam Vital Signs Vital Signs Date Time Temp Pulse Resp B/P (MAP) Pulse Ox O2 Delivery O2 Flow Rate FiO2 03/15/20 13:37 37.1 97 18 124/73 (90) 94 Room Air 03/15/20 07:45 2.00 03/14/20 21:53 24 Capillary Refill : Less Than 3 SecondsLess Than 3 Seconds General Appearance: No Apparent Distress, WD/WN Respiratory: Lungs Clear, No Accessory Muscle Use, No Respiratory Distress Cardiovascular: Regular Rate, Rhythm, No Murmur Extremity: No Calf Tenderness, No Pedal Edema Neurologic/Psychiatric: Alert, Oriented x3 Results/Procedures Lab Laboratory Tests 03/15/20 06:04 Patient resulted labs reviewed. Imaging: Reviewed Imaging Report Assessment/Plan Assessment and Plan Assess & Plan/Chief Complaint Acute hypoxic respiratory failure due to COVID19 Continue decadron and Remdesivir Convalescent plasma pending Now off oxygen MAT protocol Lovenox HLD Continue statin Obesity BMi 30.7 No acute needs DVT ppx: Lovenox Diagnosis/Problems Diagnosis/Problems (1) Acute respiratory failure (2) HLD (hyperlipidemia) (3) COVID-19 Status: Acute EVA GAN MD Mar 15, 2020 14:44
[2020-03-15] MEDS: ENOXAPARIN 40 MG/0.4 ML (LOVENOX) SYR SC SCH (20:59)
[2020-03-16 00:49] VITALS: BP 109/65
[2020-03-16] MEDS: NS IV 1000 ML 1,000 ML IV SCH (04:32)
[2020-03-16 06:17] LABS: ALBUMIN 3.3 GM/DL (3.2-4.5); CHLORIDE 106 MMOL/L (98-107); POTASSIUM 4.1 MMOL/L (3.6-5.0); SODIUM 138 MMOL/L (135-145)
[2020-03-16 06:19] LABS: CALCIUM 8.3 MG/DL (8.5-10.1)
[2020-03-16 06:20] LABS: GLUCOSE 104 MG/DL (70-105); TOTAL PROTEIN 5.9 GM/DL (6.4-8.2)
[2020-03-16 06:21] LABS: CARBON DIOXIDE 22 MMOL/L (21-32)
[2020-03-16 06:22] LABS: BILIRUBIN,TOTAL 0.4 MG/DL (0.1-1.0)
[2020-03-16 06:23] LABS: ALKALINE PHOSPHATASE 63 U/L (40-136); CREATININE SERUM 0.86 MG/DL (0.60-1.30); GFR ESTIMATED > 60
[2020-03-16 06:24] LABS: BUN/CREATININE RATIO 16
[2020-03-16] MEDS: RT-ALBUTEROL INHALER HFA (VENTOLIN HFA) 18 GM IH SCH ×2 (06:24→10:28)
[2020-03-16] MEDS: dexAMETHasone 6 MG TAB (DECADRON) PO SCH (06:24)
[2020-03-16 06:26] LABS: ALANINE AMINOTRANSFERASE 27 U/L (0-55)
[2020-03-16 07:35] VITALS: BP 120/80
[2020-03-16] MEDS: REMDESIVIR INJ 100 MG in NS (IVPB) 230 ML IV SCH (08:37)
--- NOTE | 2020-03-16 10:45 | Discharge Inst-Simple/Standard ---
Discharge Inst-Standard Patient Instructions/Follow Up Plan of Care/Instructions/FU: Please continue to take your medications as written. Please follow up with your primary care doctor to follow up this hospital stay. Please continue to wear a mask and socially distance to help slow the spread of COVID19. Activity as Tolerated: Yes Discharge Diet: No Restrictions Return to The Hospital For: Chest pain, shortness of breath, fever, confusion, if you feel you are getting worse. EVA GAN MD Mar 16, 2020 10:45
[2020-03-16] MEDS ORDERED: PROM5SYR PO (11:06)
== END 2020-03-16 11:30 | disposition home or self-care (01) | DRG 177 ==
LOC: EDUNIT# 16:40 → ER 16:43 → 4TH 20:00
PROVIDERS: ADMIT Internal Medicine; ATTEND Internal Medicine
PROC: XW033E5 Introduction of Remdesivir Anti-infective into Peripheral Vein, Percutaneous Approach, New Technology Group 5 (ICD-10-PCS; principal; 2020-03-14)
PROC: XW13325 Transfusion of Convalescent Plasma (Nonautologous) into Peripheral Vein, Percutaneous Approach, New Technology Group 5 (ICD-10-PCS; 2020-03-15)
DX: U07.1 COVID-19 (principal); J96.01 Acute respiratory failure with hypoxia; G47.30 Sleep apnea, unspecified; I10 Essential (primary) hypertension; E78.00 Pure hypercholesterolemia, unspecified; E78.5 Hyperlipidemia, unspecified; E66.9 Obesity, unspecified; Z68.30 Body mass index [BMI] 30.0-30.9, adult; Z73.0 Burn-out
CPT/HCPCS: 36415; 71045; 71275; 80053; 82728; 82805; 83605; 84145; 84484; 85025; 85379; 85610; 85730; 86141; 86900; 86901; 87040; 93041; 94640; 94760

== ENCOUNTER → 2020-03-19 | Outpatient (CLI) | payer BC ==
[~2020-03-19] MED LIST changes: +ACET-2267 PO; +ASPI-1238 PO; +ATOR40TA70 PO; +DCS100C PO; +MULT-1136 PO; +RT-ALBUINH INH
[2020-03-19 17:04] LABS: HEMOGLOBIN 14.6 g/dL (13.3-17.7); MEAN PLATELET VOLUME 9.9 fL (9.0-12.2)
[2020-03-19 17:05] LABS: BILIRUBIN,URINE NEGATIVE (NEGATIVE); CLARITY,URINE CLEAR; COLOR,URINE YELLOW; GLUCOSE, URINE (UA) NEGATIVE (NEGATIVE); KETONES,URINE NEGATIVE (NEGATIVE); LEUKOCYTE ESTERASE ,URINE NEGATIVE (NEGATIVE); NITRITE,URINE NEGATIVE (NEGATIVE); PROTEIN,URINE NEGATIVE (NEGATIVE)
[2020-03-19 17:11] LABS: BACTERIA,URINE TRACE /HPF; SQUAMOUS EPITHELIAL CELL,UR RARE /HPF; WBC,URINE RARE /HPF
[2020-03-19 17:20] LABS: ALBUMIN 3.6 GM/DL (3.2-4.5)
--- NOTE | 2020-03-19 17:20 | Diagnostic Imaging Report ---
INDICATION: COVID infection x2 weeks. Frontal chest obtained at 0449 p.m. and is compared to 03/13/2019. Heart and mediastinal silhouette are normal in appearance. There is improved aeration of the right lung base compared to the prior study. Bilateral infiltrates are otherwise unchanged. There is no pneumothorax or pleural fluid. IMPRESSION: There is some improved aeration of right lung base with less elevation of the right hemidiaphragm. The patchy bilateral infiltrates in both lungs, however, are about the same otherwise. There is no pneumothorax or pleural fluid. Dictated by: Dictated on workstation # [id number]
[2020-03-19 17:21] LABS: CHLORIDE 106 MMOL/L (98-107); POTASSIUM 4.3 MMOL/L (3.6-5.0); SODIUM 139 MMOL/L (135-145)
[2020-03-19 17:22] LABS: CALCIUM 8.6 MG/DL (8.5-10.1)
[2020-03-19 17:23] LABS: GLUCOSE 152 MG/DL (70-105); TOTAL PROTEIN 7.3 GM/DL (6.4-8.2)
[2020-03-19 17:24] LABS: CARBON DIOXIDE 23 MMOL/L (21-32)
[2020-03-19 17:25] LABS: BILIRUBIN,TOTAL 0.7 MG/DL (0.1-1.0)
[2020-03-19 17:27] LABS: ALKALINE PHOSPHATASE 75 U/L (40-136); CREATININE SERUM 1.17 MG/DL (0.60-1.30); GFR ESTIMATED > 60
[2020-03-19 17:28] LABS: BUN/CREATININE RATIO 17
[2020-03-19 17:30] LABS: ALANINE AMINOTRANSFERASE 51 U/L (0-55)
== END ==
LOC: RAD 16:17
PROVIDERS: ATTEND Internal Medicine
DX: R91.8 Other nonspecific abnormal finding of lung field (principal); Z86.16 Personal history of COVID-19
CPT/HCPCS: 36415; 71045; 80053; 81000; 82728; 84145; 85027; 85652; 86141

== ENCOUNTER 2020-05-10 01:54 | Emergency (ER) | payer BC ==
[~2020-05-10] VITALS: Ht 185 cm; Wt 100.0 kg
--- NOTE | 2020-05-10 02:29 | ED Cough/URI ---
General Chief Complaint: Cough/Cold/Flu Symptoms Stated Complaint: LUNGS FEEL FULL OF FLUID Nursing Triage Note: Pt ambulatory into ER with complaint of congestion x3-4 days. Pt states that he had covid at the end of february and then had "covid pneumonia". Pt states that this is what it felt like initially before being diagnosed with the pneumonia so he wantes to be checked. Pt states that he really doesn't want blood work or an IV, he thinks his PCP would just want a Chest xray so thats what he is here for. Sepsis Screen: No Definite Risk Source: patient History of Present Illness Date Seen by Provider: May 10, 2020 Time Seen by Provider: 02:13 Initial Comments PT ARRIVES VIA POV FROM HOME C/O PRODUCTIVE COUGH WITH GREEN SPUTUM, AND NASAL CONGESTION AND DRAINAGE FOR 3- 4 DAYS C/O FEELING SHORT OF BREATH TONIGHT WHEN HE WAS LAYING DOWN, HE STATES "IT FELT LIKE I HAD WATER IN MY LUNGS", SO CAME TO ER NO FEVER NO CHEST PAIN NO NAUSEA/VOMITING NO CHANGE IN CHRONIC SWELLING OF FEET. HAS NOT TAKEN ANYTHING FOR SYMPTOMS AT ANY TIME NO KNOWN SICK CONTACTS PT HAD COVID-19 INFECTION IN FEBRUARY AND WAS HOSPITALIZED 03/13-03/16/20 FOR ACUTE RESPIRATORY FAILURE. HE RECEIVED STEROIDS, REMDESIVIR AND CONVALESCENT PLASMA HE DID NOT REQUIRE INTUBATION AND DID NOT REQUIRE HOME O2 WHEN HE WAS DISMISSED FROM HOSPITAL HE STATES HE HAS RECOVERED FROM THAT ILLNESS PT HAS NEVER HAD A FLU VACCINATION. PCP: DR. GARCIA [employer] IN[employer] TREASURER: DR. GOULD Allergies and Home Medications Allergies Coded Allergies: No Known Drug Allergies (Unverified , 06/07/17) Home Medications Acetaminophen 500 Mg Tablet, 500-1,000 MG PO Q6H PRN for PAIN-MILD (1-4) OR TEMPATURE, (Reported) Albuterol Sulfate 6.7 Gm Hfa.aer.ad, 2 PUFF INH Q4H PRN for SHORTNESS OF BREATH, (Reported) Aspirin 81 Mg Tablet., 81 MG PO DAILY, (Reported) Atorvastatin Calcium 40 Mg Tablet, 40 MG PO DAILY, (Reported) Docusate Sodium 100 Mg Capsule, 100 MG PO BID, (Reported) Doxycycline Hyclate 100 Mg Tablet, 100 MG PO BID Prescribed by: DOLORES VERMA on 05/10/20 0314 Guaifenesin/Dextromethorphan 1 Each Tbmp.12hr, 1 EACH PO BID Prescribed by: DOLORES VERMA on 05/10/20 0314 Multivitamin 1 Each Tablet, 1 EACH PO DAILY, (Reported) Promethazine HCl/Codeine 5 Ml Syrup, 5 ML PO Q4H PRN for COUGH Prescribed by: EVA GAN on 03/16/20 1106 Patient Home Medication List Home Medication List Reviewed: Yes Review of Systems Review of Systems Constitutional: see HPI, fever EENTM: see HPI, nose congestion Respiratory: see HPI, cough, orthopnea, phlegm, short of breath Cardiovascular: No chest pain; edema Gastrointestinal: no symptoms reported Genitourinary: no symptoms reported Musculoskeletal: no symptoms reported Skin: no symptoms reported Psychiatric/Neurological: No Symptoms Reported Hematologic/Lymphatic: No Symptoms Reported Immunological/Allergic: no symptoms reported Past Jokczxo-Ldopmu-Ocewhi Hx Past Med/Social Hx: Reviewed and Corrections made Patient Social History Alcohol Use: Regular Use (HEAVY DAILY USE) Alcohol Beverage of Choice: Rum, Whiskey, Baudette, Vodka Drug of Choice: THC SEVERAL TIMES A WEEK Smoking Status: Never a Smoker 2nd Hand Smoke Exposure: No Recent Infectious Disease Expo: No Recent Hopitalizations: No Immunizations Up To Date Tetanus Booster (TDap): Less than 5yrs Seasonal Allergies Seasonal Allergies: No Past Medical History Surgeries: Yes (HIP RELACEMENT, UMBILICAL HERNIA) Abdominal, Orthopedic, Vasectomy Respiratory: Yes (COVID-19+ 02/2020) Pneumonia, Sleep Apnea Currently Using CPAP: No Cardiac: Yes High Cholesterol, Hypertension, Syncope Neurological: No Reproductive Disorders: No Sexually Transmitted Disease: No HIV/AIDS: No Genitourinary: No Gastrointestinal: Yes (UMBILICAL HERNIA REPAIR) Musculoskeletal: Yes (HIP REPLACEMENT) Endocrine: No HEENT: Yes Loss of Vision: Bilateral Hearing Impairment: Denies Cancer: No Psychosocial: No Integumentary: No Blood Disorders: No Adverse Reaction/Blood Tranf: No (N/A) Family Medical History No Pertinent Family Hx Physical Exam Vital Signs - First Documented 05/10/20 02:07 Temp 36.6 Pulse 101 Resp 16 B/P (MAP) 140/93 (109) Pulse Ox 98 O2 Delivery Room Air Capillary Refill : Less Than 3 Seconds Height: 6'1.00" Weight: 235lbs. 0.0oz. 106.264021cg; 29.00 BMI Method: General Appearance: WD/WN, no apparent distress HEENT: PERRL/EOMI, other (NASAL CONGESTION AND POST NASAL DRAINAGE) Respiratory: no respiratory distress, rales (IN BASES), other (OCCASIONAL MOIST COUGH. 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 II-XII nml as tested, no motor/sensory deficits, alert, normal mood/affect, oriented x 3 Skin: normal color, warm/dry Progress/Results/Core Measures Suspected Sepsis Recent Fever Within 48 Hours: No Infection Criteria Present: None New/Unexplained Altered Menta: No Sepsis Screen: No Definite Risk SIRS Temperature: Pulse: 101 Respiratory Rate: 16 Blood Pressure 140 /93 Mean: 109 Results/Orders My Orders Orders - DOLORES VERMA DO Ekg Tracing (05/10/20 02:13) Monitor-Rhythm Ecg Trace Only (05/10/20 02:13) Chest Pa/Lat (2 View) (05/10/20 02:22) Vital Signs/I&O 05/10/20 05/10/20 02:07 02:16 Temp 36.6 Pulse 101 Resp 16 B/P (MAP) 140/93 (109) Pulse Ox 98 O2 Delivery Room Air Room Air Capillary Refill : Less Than 3 Seconds Blood Pressure Mean: 109 Progress Note : Progress Note PT ADAMANTLY REFUSES ALL TESTS EXCEPT CHEST XRAY--STATES THAT IS THE ONLY REASON HE IS HERE-"TO SEE IF I GOT PNEUMONIA". EXPLAINED TO PT THAT HIS SYMPTOMS COULD BE CAUSED BY OTHER PROBLEMS BESIDES "PNEUMONIA" Departure Impression Primary Impression: Upper respiratory infection Disposition: HOME, SELF-CARE Condition: Stable Departure-Patient Inst. Referrals: VANESSA GARCIA,LOCAL PHYSICIAN (PCP) Primary Care Physician Patient Instructions: Cough, Runny Nose, and the Common Cold (DC) Add. Discharge Instructions: LOTS OF CLEAR LIQUIDS TYLENOL AND MOTRIN NEEDED FOR PAIN OR FEVER FOLLOW UP WITH YOUR DR IN 4-5 DAYS IF NO BETTER All discharge instructions reviewed with patient and/or family. Voiced understanding. Scripts Guaifenesin/Dextromethorphan (Mucinex Dm ER 1,200-60 mg Tab) 1 Each Tbmp.12hr 1 EACH PO BID, #20 EA Prov: DOLORES VERMA DO 05/10/20 Doxycycline Hyclate (Doxycycline Hyclate) 100 Mg Tablet 100 MG PO BID, #20 TAB 0 Refills Prov: DOLORES VERMA DO 05/10/20 DOLORES VERMA DO May 10, 2020 02:29
[2020-05-10] MEDS ORDERED: DOXY100T2 PO (03:14)
[2020-05-10] MEDS ORDERED: GUAI1TBM19 PO (03:14)
[2020-05-10 03:33] VITALS: BP 119/82
--- NOTE | 2020-05-10 06:55 | Diagnostic Imaging Report ---
EXAMINATION: CHEST (PA AND LATERAL) CLINICAL INDICATION: 55-year-old male, dyspnea, cough. COMPARISON: March 19, 2020. FINDINGS: Heart size and mediastinal contours are unchanged. There is no identified pneumothorax. There is no pleural effusion. There is no identified focal airspace consolidation. IMPRESSION: No identified acute cardiopulmonary abnormality. Dictated by: Dictated on workstation # [id number]
== END 2020-05-10 03:33 | disposition home or self-care (01) ==
LOC: EDUNIT# 01:54 → ER 02:01
DX: J06.9 Acute upper respiratory infection, unspecified (principal); I10 Essential (primary) hypertension; E78.00 Pure hypercholesterolemia, unspecified; Z79.82 Long term (current) use of aspirin
CPT/HCPCS: 71046; 93041

== ENCOUNTER → 2020-05-29 | Outpatient (CLI) | payer BC ==
[~2020-05-29] MED LIST changes: +DOXY100T2 PO; +GUAI1TBM19 PO
== END ==
LOC: CARD 08:30
PROVIDERS: ATTEND Internal Medicine Cardiovascular Disease
DX: I11.9 Hypertensive heart disease without heart failure (principal)
CPT/HCPCS: 93306

== ENCOUNTER → 2022-06-03 | Outpatient (CLI) | payer BC ==
[~2022-06-03] MED LIST changes: -DCS100C PO; +DOCU-239 PO; +HOLD METFORMIN - RECEIVED CONTRAST 20 ML VIAL IV SCH; +IOHEXOL 350 MG/ML 100 ML (OMNIPAQUE 350) VIAL IV ONE; +NS 100 ML (IVPB) BAG IV ONE
[2022-06-03 08:29] LABS: CREATININE SERUM 1.14 MG/DL (0.60-1.30)
--- NOTE | 2022-06-03 09:39 | Diagnostic Imaging Report ---
INDICATION: Ear and left neck paresthesia with thermal sensation for 6 months. EXAMINATION: Multiple contiguous axial CT images of the head were obtained prior to and after intravenous administration of contrast. FINDINGS: Ventricles and sulci are within normal limits. There is no intracranial hemorrhage or abnormal mass effect. No abnormal focus of contrast enhancement is identified. There is opacification of the right frontal sinus with abnormal density extending through the frontal ethmoid recess. There is opacification of anterior right ethmoid air cells. There is rightward bowing of the nasal septum. There is no evidence of intraorbital extension there is probable mild periosteal reaction in the frontal sinus as well. IMPRESSION: No acute intracranial abnormalities identified however there is extensive probable chronic right frontal and anterior ethmoid sinus disease without intraorbital extension. CT NECK: Images at the skull base are unremarkable. Temporomandibular joints are intact. Mastoid air cells and middle ear cavities are also unremarkable. No evidence of osseous abnormality at the inner ear. Parotid salivary glands are unremarkable with possible subcentimeter lymph node posteriorly on the left. There are dense calcifications in the left palatine tonsil which may be related to chronic inflammation. Submandibular salivary glands are unremarkable. No laryngeal abnormality is seen. Thyroid gland is unremarkable. There is loss of cervical lordosis with C6-C7 disc space narrowing and endplate spurring. IMPRESSION: 1. No definite acute abnormality is seen in the neck. There is no evidence of mass, pathologic adenopathy or focal fluid collection. 2. Probable dystrophic calcifications in the left palatine tonsil could be related to chronic inflammation. Dictated by: Dictated on workstation # [id number]
== END ==
LOC: RAD 07:42
PROVIDERS: ATTEND Otolaryngology Otolaryngology/Facial Plastic Surgery
DX: R20.0 Anesthesia of skin (principal); R20.2 Paresthesia of skin
CPT/HCPCS: 36415; 70470; 70491; 82565; 84520; 85652

== ENCOUNTER 2022-08-19 05:41 | Outpatient (CLI) | payer BC ==
[~2022-08-19] VITALS: Ht 185.4 cm; Wt 106.9 kg
[~2022-08-19 05:41] MED LIST changes: -HOLD METFORMIN - RECEIVED CONTRAST 20 ML VIAL IV SCH; -IOHEXOL 350 MG/ML 100 ML (OMNIPAQUE 350) VIAL IV ONE; -NS 100 ML (IVPB) BAG IV ONE
[2022-08-19] MEDS ORDERED: ALLO100T PO (09:29)
[2022-08-19] MEDS ORDERED: TOPI25TA10 PO (09:29)
== END 2022-08-19 09:39 | disposition home or self-care (01) ==
LOC: PREOP 05:41
PROVIDERS: ATTEND Surgery
DX: Z01.818 Encounter for other preprocedural examination (principal)

== ENCOUNTER 2022-08-26 10:27 | Day surgery (SDC) | payer BC ==
[~2022-08-26] VITALS: Ht 185 cm; Wt 106.9 kg
[~2022-08-26 10:27] MED LIST changes: +ALLO100T PO; +TOPI25TA10 PO
[2022-08-26] MEDS ORDERED: LACTATED RINGERS 1,000 ML IV STA (10:33)
[2022-08-26] MEDS ORDERED: LIDOCAINE JELLY 2% 6 ML SYRINGE MM PRN (10:45)
[2022-08-26 10:49] VITALS: BP 116/88
--- NOTE | 2022-08-26 10:55 | Progress Note-Pre Operative ---
Pre-Operative Progress Note Date of Available H&P: Aug 26, 2022 Date H&P Reviewed: Aug 26, 2022 Time H&P Reviewed: 10:30 History & Physical: No changes noted Pre-Operative Diagnosis: screening colo TG OCHOA MD Aug 26, 2022 10:55
--- NOTE | 2022-08-26 10:59 | Discharge Inst-Surgical ---
D/C Lap Instructions-GABRIELA Follow Up Activity as tolerated High Fiber Diet 25g or more per day Avoid Alcohol, Caffeine, Spicy [place] and Acid foods. Drink 64 fluid oz or more of fluids per day. Symptoms to Report: Fever over 101 degree F, Nausea/Vomiting If any problems/questions: Contact your physician or go to Emergency Room TG OCHOA MD Aug 26, 2022 10:59
[2022-08-26] MEDS ORDERED: ONDANSETRON 4 MG (ZOFRAN) ORAL DISSOLVE TAB PO PRN (11:00)
[2022-08-26] MEDS ORDERED: ONDANSETRON 4 MG/2 ML (SDV) Z0FRAN IVP PRN (11:00)
[2022-08-26] MEDS ORDERED: PROPOFOL INJECTION 50 ML IV ONE (11:57)
[2022-08-26] MEDS ORDERED: LIDOCAINE JELLY 2% 6 ML SYRINGE ONE (12:23)
[2022-08-26 12:57] VITALS: BP 106/72
[2022-08-26 13:02] VITALS: BP 110/73
[2022-08-26 13:03] VITALS: BP 110/73
[2022-08-26 13:17] VITALS: BP 110/73
--- NOTE | 2022-08-26 17:18 | OPERATIVE REPORT ---
DATE OF SERVICE: 08/26/2022 ATTENDING ADMITTING PHYSICIAN: Dr. Reynoso. PREOPERATIVE DIAGNOSIS: Screening colonoscopy. POSTOPERATIVE DIAGNOSES: Acute on chronic stage II external and internal hemorrhoids, moderate sigmoid diverticulosis. PROCEDURE: Colonoscopy. SURGEON: Tg Hester MD ANESTHESIA: Monitored anesthesia care. ESTIMATED BLOOD LOSS: Minimal. FINDINGS: Acute on chronic stage II external and internal hemorrhoids, moderate sigmoid diverticulosis. DISPOSITION: The patient tolerated the procedure well. INDICATIONS: The patient is a 57-year-old male in need of a screening colonoscopy. His last colonoscopy was approximately 5 years ago and he did remember having some polyps, which were benign; however, he cannot recall what type of polyps, they were. He does have some intermittent episodes of constipation and also noticed some blood per rectum during these episodes. He does not report any family history of colon cancer. DESCRIPTION OF PROCEDURE: The patient was brought to the endoscopy suite and laid in the left lateral decubitus position. After adequate IV pain and sedative medications and monitored anesthesia care, a digital rectal examination was performed. There was a mild acute on chronic stage II, external and internal hemorrhoids with no active bleeding. Normal sphincter tone was felt and there were no palpable masses. Prostate gland was palpable and appeared normal. The endoscope was then intubated into the anus, rectum gently insufflated. The endoscope was then advanced through the valves of [place]ino[place] with no polyps or any neoplasms identified. Through the sigmoid colon as well as the distal descending colon, moderate diverticulosis identified. There were no mucosal inflammatory changes to indicate any active diverticulitis. The endoscope was then advanced through the remainder of the descending, transverse and ascending colon to the cecum, which were normal. There were no polyps or any neoplasms identified as well as no active bleeding sources. Endoscope was then slowly withdrawn while taking a second look and suctioning of residual air with no additional findings. The patient tolerated the procedure well. We will recommend the necessary lifestyle and dietary accommodation including high-fiber diet with addition of a fiber supplement, which equal or exceed 30 grams daily as well as significant amounts of water to promote soft consistency stools on a daily basis. This should help with any further propagation of diverticulosis as well as prevent episodes of diverticulitis or complications related to diverticulitis. He does not have any first-degree family history of colon cancer and he is asymptomatic. He may wait 10 years for his next colonoscopy. Job ID: [id number] DocumentID: [id number] Dictated Date: 08/26/2022 12:58:03 Certified Medical Transcriptionist Date: 08/26/2022 17:16:00 Dictated By: TG HESTER MD
== END 2022-08-26 13:27 | disposition home or self-care (01) ==
LOC: ENDO 10:27
PROVIDERS: ATTEND Surgery
DX: Z12.11 Encounter for screening for malignant neoplasm of colon (principal); K57.30 Diverticulosis of large intestine without perforation or abscess without bleeding; K64.1 Second degree hemorrhoids; K64.4 Residual hemorrhoidal skin tags; E66.01 Morbid (severe) obesity due to excess calories; Z68.31 Body mass index [BMI] 31.0-31.9, adult; Z86.010 Personal history of colon polyps; F17.220 Nicotine dependence, chewing tobacco, uncomplicated